=== PATIENT | female | born 1985 | race Caucasian/White ===

== ENCOUNTER 2016-12-11 23:32 | Emergency (ER) | payer OTHER, MEDICAID ==
[~2016-12-11] VITALS: Ht 167.6 cm; Wt 82.0 kg
[2016-12-12 04:55] VITALS: BP 102/61
== END 2016-12-12 10:00 | disposition home or self-care (01) ==
LOC: ER 12-12 09:32
DX: S70.361A Insect bite (nonvenomous), right thigh, initial encounter (principal); S70.362A Insect bite (nonvenomous), left thigh, initial encounter; Y93.89 Activity, other specified; Z90.49 Acquired absence of other specified parts of digestive tract; Z98.890 Other specified postprocedural states; W57.XXXA Bitten or stung by nonvenomous insect and other nonvenomous arthropods, initial encounter; Y92.018 Other place in single-family (private) house as the place of occurrence of the external cause; Y99.8 Other external cause status
CPT/HCPCS: 99283; Z7610